=== PATIENT | male | born 1975 | race Caucasian/White ===

== ENCOUNTER 2025-06-17 21:20 | Emergency (ER) | payer BC ==
[2025-06-17 22:19] VITALS: BP 134/84; PULSE 100
[2025-06-17] MEDS: Diphtheria,Pertussis(Acell),Tetanus Vaccine 0.5 ML Syringe IM ONE (22:22)
== END 2025-06-17 23:48 | disposition home or self-care (01) ==
LOC: MW.ED 21:20
DX: S61.212A Laceration without foreign body of right middle finger without damage to nail, initial encounter (principal); S61.214A Laceration without foreign body of right ring finger without damage to nail, initial encounter; W25.XXXA Contact with sharp glass, initial encounter; Z23 Encounter for immunization
CPT/HCPCS: 12002; 73130-26-RT; 73130-RT; 90471; 90715; 99283; 99283-25